=== PATIENT | female | born 1950 | race Two or more races ===

== ENCOUNTER 2023-07-02 13:21 | Emergency (ER) | payer OTHER ==
[~2023-07-02] VITALS: Ht 160 cm; Wt 69.9 kg
[2023-07-02] MEDS ORDERED: JANUMET XR 1001 EACH PO (14:15)
[2023-07-02] MEDS ORDERED: NAMENDA XR28 MG PO (14:16)
[2023-07-02] MEDS ORDERED: GLIMEPIRIDE4 MG (14:16)
[2023-07-02] MEDS ORDERED: IRBESARTAN-HCT1 EACH PO (14:16)
[2023-07-02] MEDS ORDERED: AROMASIN25 MG PO (14:17)
[2023-07-02] MEDS ORDERED: CARVEDILOL25 MG (14:17)
[2023-07-02] MEDS ORDERED: LIPITOR20 MG PO (14:17)
[2023-07-02] MEDS ORDERED: EXELON1 EAC2 (14:18)
== END 2023-07-02 17:18 | disposition home or self-care (01) ==
LOC: ER 13:21
DX: K30 Functional dyspepsia (principal)